=== PATIENT | male | born 1995 | race Caucasian/White ===

== ENCOUNTER 2016-08-26 07:57 | Emergency (ER) | payer SELFPAY ==
[~2016-08-26] VITALS: Ht 188 cm; Wt 165.6 kg
[2016-08-26 07:59] VITALS: BP 119/82
[2016-08-26] MEDS ORDERED: ALBUTEROL SULFATE 2.5 MG/3 ML NPPB ONE (08:30)
[2016-08-26] MEDS ORDERED: ALBUTEROL/IPRATROPIUM 2.5MG/0.5MG, 3 ML ONE (08:30)
== END 2016-08-26 09:30 | disposition home or self-care (01) ==
LOC: ED 09:00
DX: J45.31 Mild persistent asthma with (acute) exacerbation (principal); J20.9 Acute bronchitis, unspecified
CPT/HCPCS: 71020; 87081; 87880; 94640; 99285; J7512; J7613

== ENCOUNTER 2018-02-05 08:49 | Emergency (ER) | payer OTHER ==
[~2018-02-05] VITALS: Ht 188 cm; Wt 162.5 kg
[2018-02-05 09:02] VITALS: BP 138/83
== END 2018-02-05 11:05 | disposition home or self-care (01) ==
LOC: ED 10:37
DX: S16.1XXA Strain of muscle, fascia and tendon at neck level, initial encounter (principal); S39.012A Strain of muscle, fascia and tendon of lower back, initial encounter; S29.012A Strain of muscle and tendon of back wall of thorax, initial encounter; J45.909 Unspecified asthma, uncomplicated; V49.59XA Passenger injured in collision with other motor vehicles in traffic accident, initial encounter; Y93.89 Activity, other specified; Y92.89 Other specified places as the place of occurrence of the external cause; Y99.8 Other external cause status
CPT/HCPCS: 72072; 72110; 72125; 99284

== ENCOUNTER 2018-02-09 10:59 | Emergency (ER) | payer OTHER ==
[~2018-02-09] VITALS: Ht 190.5 cm; Wt 136.4 kg
[2018-02-09 11:05] VITALS: BP 158/92
[2018-02-09] MEDS ORDERED: ACET325T14 PO (11:14)
== END 2018-02-09 11:27 | disposition home or self-care (01) ==
LOC: ED 11:20
DX: S39.012A Strain of muscle, fascia and tendon of lower back, initial encounter (principal); M54.2 Cervicalgia; J45.909 Unspecified asthma, uncomplicated; V49.49XA Driver injured in collision with other motor vehicles in traffic accident, initial encounter; Y93.89 Activity, other specified; Y99.8 Other external cause status; Y92.410 Unspecified street and highway as the place of occurrence of the external cause
CPT/HCPCS: 99283

== ENCOUNTER 2018-07-17 21:30 | Emergency (ER) | payer SELFPAY ==
[~2018-07-17] VITALS: Ht 190.5 cm; Wt 165.6 kg
[~2018-07-17 21:30] MED LIST: ACET325T14 PO
--- NOTE | 2018-07-17 21:40 | NUR ---
AWARE OF WAIT PRIOR TO ROOMING.
--- NOTE | 2018-07-17 22:30 | NUR ---
PT AND RESTING COMFORTABLY IN LOBBY, AWARE OF WAIT.
[2018-07-17 22:42] LABS: BASOPHILS # (AUTO) 0.08 x10^3/uL (0-0.1); BASOPHILS % (AUTO) 1 % (0-1); EOSINOPHILS # (AUTO) 0.48 x10^3/uL (0-0.4); EOSINOPHILS % (AUTO) 3 % (1-7); LYMPHOCYTES # (AUTO) 2.01 x10^3/uL (1-3.4); LYMPHOCYTES % (AUTO) 12 % (22-44); MD NO; MEAN CORPUSCULAR HEMOGLOBIN 31.7 pg (27.5-34.5); MEAN CORPUSCULAR HGB CONC 34.1 g/dL (33.2-36.2); MEAN PLATELET VOLUME 10.2 fL (7.4-10.4); MONOCYTES # (AUTO) 0.99 x10^3/uL (0.2-0.8); MONOCYTES % (AUTO) 6 % (2-9); NEUTROPHILS # (AUTO) 12.68 x10^3/uL (1.8-6.8); NEUTROPHILS % (AUTO) 78 % (42-75); PLATELET COUNT 178 x10^3/uL (130-400); RED BLOOD COUNT 4.92 x10^6/uL (4.38-5.82); RED CELL DISTRIBUTION WIDTH 12.6 % (9.4-14.8)
[2018-07-17] MEDS ORDERED: ACETAMINOPHEN 325 MG TABLET ONE (22:48)
[2018-07-17] MEDS ORDERED: IBUPROFEN 600 MG TABLET ONE (22:48)
--- NOTE | 2018-07-17 22:51 | NUR ---
pt to room from lobby
[2018-07-17 22:55] LABS: ALANINE AMINOTRANSFERASE 40 U/L (12-78); ALBUMIN 3.7 g/dL (3.4-5.0); ANION GAP 5 mmol/L (5-15); CALCIUM 8.5 mg/dL (8.5-10.1); CHLORIDE 108 mmol/L (98-107); CREATININE 1.17 mg/dL (0.7-1.3)
[2018-07-17 22:57] LABS: ALKALINE PHOSPHATASE 75 U/L (45-117); BILIRUBIN,TOTAL 0.6 mg/dL (0.2-1.0); TOTAL PROTEIN 7.6 g/dL (6.4-8.2)
[2018-07-17] MEDS ORDERED: IBUPROFEN 600 MG TABLET PO ONE (23:00)
[2018-07-17] MEDS ORDERED: ACETAMINOPHEN 325 MG TABLET PO ONE (23:00)
[2018-07-17] MEDS ORDERED: CLINDAMYCIN PMX 600MG/50ML 50 ML IV ONE (23:30)
[2018-07-17] MEDS ORDERED: MORPHINE SULFATE 4 MG/ML, 1ML IVPush PRN (23:30)
[2018-07-17] MEDS ORDERED: ONDANSETRON 2MG/ML, 2ML IVPush ONE (23:30)
[2018-07-17] MEDS ORDERED: SODIUM CHLORIDE FLUSH 10ML SYR IVF ONE (23:30)
--- NOTE | 2018-07-17 23:40 | NUR ---
PT TO CT AT THIS TIME.
[2018-07-17] MEDS ORDERED: MORPHINE SULFATE 4 MG/ML, 1ML ONE (23:42)
[2018-07-17] MEDS ORDERED: CLINDAMYCIN PMX 600MG/50ML 50 ML ONE (23:42)
[2018-07-17] MEDS ORDERED: ONDANSETRON 2MG/ML, 2ML ONE (23:42)
[2018-07-17] MEDS ORDERED: OMNIPAQUE 350 MG/ML, 150 ML BOTTLE ONE (23:55)
[2018-07-18 00:59] VITALS: BP 143/88
== END 2018-07-18 01:00 | disposition home or self-care (01) ==
LOC: ED 07-18 00:17
DX: L03.115 Cellulitis of right lower limb (principal); M25.561 Pain in right knee; J45.909 Unspecified asthma, uncomplicated
CPT/HCPCS: 36415; 73701; 80053; 85025; 87040; 96365; 96375; 99284; J2405; Q9967

== ENCOUNTER 2018-09-13 16:29 | Emergency (ER) | payer OTHER ==
[~2018-09-13] VITALS: Ht 190.5 cm; Wt 167.2 kg
--- NOTE | 2018-09-13 16:53 | NUR ---
PT TO RME FROM LOBBY UPRIGHT STEADY GAIT
[2018-09-13] MEDS ORDERED: HYDROcodone/APAP 5/325 TABLET ONE (17:50)
[2018-09-13] MEDS ORDERED: HYDROcodone/APAP 5/325 TABLET PO ONE (18:00)
[2018-09-13 18:08] VITALS: BP 144/89
--- NOTE | 2018-09-13 18:09 | NUR ---
Patient/Caregiver given discharge instructions and they have confirmed that they understand the instructions. Patient ambulatory with steady gait.
== END 2018-09-13 18:10 | disposition home or self-care (01) ==
LOC: ED 18:03
DX: S39.012A Strain of muscle, fascia and tendon of lower back, initial encounter (principal); M54.42 Lumbago with sciatica, left side; J45.909 Unspecified asthma, uncomplicated; X50.1XXA Overexertion from prolonged static or awkward postures, initial encounter; Y93.89 Activity, other specified; Y92.89 Other specified places as the place of occurrence of the external cause; Y99.8 Other external cause status
CPT/HCPCS: 72110; 99283

== ENCOUNTER 2019-03-24 13:56 | Emergency (ER) | payer OTHER ==
[~2019-03-24] VITALS: Ht 188 cm; Wt 167.3 kg
[2019-03-24 14:17] VITALS: BP 148/68
[2019-03-24] MEDS ORDERED: DEXAMETHASONE 4 MG TABLET ONE (15:12)
[2019-03-24] MEDS ORDERED: DEXAMETHASONE 4 MG TABLET PO ONE (15:30)
== END 2019-03-24 16:03 | disposition home or self-care (01) ==
LOC: ED 15:45
DX: J10.1 Influenza due to other identified influenza virus with other respiratory manifestations (principal); J40 Bronchitis, not specified as acute or chronic
CPT/HCPCS: 99283

== ENCOUNTER 2019-12-12 10:14 | Emergency (ER) | payer OTHER ==
[~2019-12-12] VITALS: Ht 190.5 cm; Wt 175.6 kg
[2019-12-12 10:19] VITALS: BP 143/87
[2019-12-12] MEDS ORDERED: KETOROLAC 30 MG/1 ML ONE (10:40)
--- NOTE | 2019-12-12 10:49 | NUR ---
pt presents to ED with c/o left shoulder pain x 4 days, cannot recall specific injury, however performs manual labor for work. xray completed, pt medicated per emar, tolerated well. pt a&o, resps even and unlabored, nadn. awaiting radiology and dispo .
[2019-12-12] MEDS ORDERED: KETOROLAC 30 MG/1 ML IM ONE (11:00)
--- NOTE | 2019-12-12 11:35 | NUR ---
PT'S SYMPTOMOLOGY DISCUSSED WITH NAVIN BARRON AND GABI JEFFERSON, PER GABI AND NAVIN NO EKG INDICATED PAIN APPEARS TO BE MUSCULOSKELETAL. PT GIVEN INSTRUCTIONS AND SCRIPT, EDUCATED REGARDING RX FOR MOTRIN. PT A&O, RESPS EVEN AND UNLABORED, NADN. PT AMBULATORY TO DC DESK WITH STEADY GAIT. ALL QUESTIONS ANSWERED.
== END 2019-12-12 11:36 | disposition home or self-care (01) ==
LOC: ED 10:49
DX: M25.512 Pain in left shoulder (principal); J45.909 Unspecified asthma, uncomplicated
CPT/HCPCS: 73030; 96372; 99283; J1885

== ENCOUNTER 2020-04-23 18:47 | Emergency (ER) | payer SELFPAY ==
[~2020-04-23] VITALS: Ht 190.5 cm; Wt 169.0 kg
[2020-04-23] MEDS ORDERED: BENZONATATE 100 MG CAPSULE PO ONE (21:30)
[2020-04-23] MEDS ORDERED: AZITHROMYCIN 500 MG TABLET PO ONE (21:30)
[2020-04-23] MEDS ORDERED: AZITHROMYCIN 500 MG TABLET ONE (21:33)
[2020-04-23] MEDS ORDERED: BENZONATATE 100 MG CAPSULE ONE (21:33)
--- NOTE | 2020-04-23 21:36 | NUR ---
TASK RN: PT MEDICATED PER MAR, PROVIDED SNACKS, UPDATE ON POC. NAD, DENIES ADDITIONAL QUESTIONS OR NEEDS AT THIS TIME, BED IN LOWEST, CLALL IGHT ON LAP, WCTM.
[2020-04-23 21:49] VITALS: BP 128/73
== END 2020-04-23 21:51 | disposition home or self-care (01) ==
LOC: ED 21:45
DX: J45.21 Mild intermittent asthma with (acute) exacerbation (principal); Z20.828 Contact with and (suspected) exposure to other viral communicable diseases; J45.31 Mild persistent asthma with (acute) exacerbation; R00.0 Tachycardia, unspecified; I21.9 Acute myocardial infarction, unspecified
CPT/HCPCS: 71045; 87635; 93005; 99285; J7512

== ENCOUNTER 2020-09-01 11:43 | Emergency (ER) | payer SELFPAY ==
[~2020-09-01] VITALS: Ht 190.5 cm; Wt 176.5 kg
[2020-09-01 11:46] VITALS: BP 150/96
[2020-09-01] MEDS ORDERED: PROPARACAINE OPHTH 0.5%, 15ML EACHEYE ONE (12:00)
[2020-09-01] MEDS ORDERED: FLUORESCEIN OPHTHALMIC 1 MG STRIP EACHEYE ONE (12:00)
[2020-09-01] MEDS ORDERED: FLUORESCEIN OPHTHALMIC 1 MG STRIP ONE (12:25)
[2020-09-01] MEDS ORDERED: PROPARACAINE OPHTH 0.5%, 15ML ONE (12:26)
--- NOTE | 2020-09-01 12:43 | NUR ---
Patient given discharge instructions and they have confirmed that they understand the instructions. Patient ambulatory with steady gait.
== END 2020-09-01 12:44 | disposition home or self-care (01) ==
LOC: ED 12:30
DX: S05.01XA Injury of conjunctiva and corneal abrasion without foreign body, right eye, initial encounter (principal); X58.XXXA Exposure to other specified factors, initial encounter; Y93.9 Activity, unspecified; Y92.89 Other specified places as the place of occurrence of the external cause; Y99.8 Other external cause status
CPT/HCPCS: 99283